=== PATIENT | male | born 1945 | race African-American/Black ===

== ENCOUNTER → 2017-12-15 | Outpatient (CLI) | payer MEDICARE ==
--- NOTE | 2017-12-15 16:27 | RADIOLOGY REPORT (SQ) ---
EXAM DESCRIPTION: BONE SURVEY COMPLETE COMPLETED DATE/TIME: 12/15/2017 3:52 pm REASON FOR STUDY: C90.00 MULTIPLE MYELOMA NOT HAVING ACHIEVED REMISSION C90.00 MULTIPLE MYELOMA NOT HAVING ACHIEVED REMISSION COMPARISON: None. TECHNIQUE: Images of the axial and proximal appendicular skeleton are obtained, along with lateral s kull and frontal chest films. LIMITATIONS: None. FINDINGS: Multiple lytic lesions characteristic from myeloma are scattered throughout the calvarium, right mid humeral diaphysis, left proximal humeral diaphysis, bilateral proximal femoral intertrocha nteric regions, and bilateral femoral mid diaphyseal regions. There are multiple compression fractures with the T11 vertebra plana deformity, and 25 to 50% sariah dwaine of L1, L2, L3, and L4. Old right anterior 6th rib and left lateral 7th rib fractures. Remainder of skeletal survey demonstrates a right-sided permanent central line with the tip in the saleh perior vena cava. No acute infiltrates. No pleural effusion or pneumothorax. No cardiomegaly. Emb olization coils are present along the right paraspinal region at the L1-2 level. IMPRESSION: Multiple lytic skeletal lesions from known multiple myeloma TECHNICAL DOCUMENTATION: JOB ID: [id number] [employer]- All Rights Reserved Reading location - IP/workstation name: [email or web address]
== END ==
LOC: RAD 15:37
PROVIDERS: ATTEND Internal Medicine
DX: C90.00 Multiple myeloma not having achieved remission (principal)
CPT/HCPCS: 77075

== ENCOUNTER 2018-02-09 15:18 | Outpatient (CLI) | payer MEDICARE ==
[2018-02-09] MEDS ORDERED: POTASSI CL 30 MEQ/D5-1/2NS 1L 1000 ML IV PRN (17:00)
== END 2018-02-09 20:53 | disposition home or self-care (01) ==
LOC: II 15:18 → 3S 15:44 → II 20:53
PROVIDERS: ATTEND Internal Medicine
PROC: 3E043GC Introduction of Other Therapeutic Substance into Central Vein, Percutaneous Approach (ICD-10-PCS; principal; 2018-02-09)
DX: E87.6 Hypokalemia (principal)
CPT/HCPCS: 96365; 96366; J3480